=== PATIENT | female | born 1965 | race Caucasian/White ===

== ENCOUNTER 2021-02-12 05:55 | Day surgery (SDC) | payer OTHER, SELFPAY ==
--- NOTE | 2021-02-11 13:53 | P.CONAN_ITS ---
Documented by User: Cassandra Gutiérrez NP 02/11/21 13:53 HPI - Anesthesia Eval Consult details Narrative: 55yo F for Upper Endoscopy and Colonoscopy [facility] Past Medical History Medical History (Updated 02/11/21 @ 12:09 by Angie Flynn RN) Anxiety Depression GERD (gastroesophageal reflux disease) Urinary bladder incontinence Family History Family History (Updated 02/11/21 @ 12:15 by Angie Flynn RN) Father Colon cancer Brother Heart disease Diabetes Surgical History Surgical History (Updated 02/11/21 @ 12:09 by Angie Flynn RN) Hx of colonoscopy Social History Social History Patient Tobacco Use Status: Never used Tobacco Use of substances other than those prescribed or required for medical reasons: No Have you been hit, kicked, punched, or otherwise hurt by someone within the past year? If so, by whom?: No Are you DNR?: No Advance Directives: No Advance Directives Information Provided: Yes Meds Allergies Allergy/AdvReac Type Severity Reaction Status Date / Time No Known Allergies Allergy Unverified 02/10/21 20:16 Home Medications Medication Instructions Recorded Confirmed Last Taken Type bupropion HCl 200 mg tablet,12 hr 1 tab PO DAILY 02/11/21 02/11/21 Unknown History sustained-release oqjgwbtncj-ytrhhvglwttwl-syxndycm 1 tab PO TID PRN 02/11/21 02/11/21 Unknown History 50 mg-325 mg-40 mg tablet sertraline 50 mg tablet 1 tab PO DAILY 02/11/21 02/11/21 Unknown History temazepam 15 mg capsule 1 - 2 cap PO BEDTIME PRN 02/11/21 02/11/21 Unknown History Exam Exam Date and Time: February 11, 2021 1353 Assessment and Plan Assessment Anesthesia Assessment: Chart Reviewed Documented by User: Dmitry Weathers 02/12/21 07:24 [facility] Past Medical History Medical History (Updated 02/11/21 @ 12:09 by Angie Ronchi, RN) Anxiety Depression GERD (gastroesophageal reflux disease) Urinary bladder incontinence Functional capacity: independent ambulation Family History Family History (Updated 02/11/21 @ 12:15 by Angie Flynn RN) Father Colon cancer Brother Heart disease Diabetes Family history of problems with anesthesia: No Surgical History Surgical History (Updated 02/11/21 @ 12:09 by Angie Flynn RN) Hx of colonoscopy History of Problems with Anesthesia: No Social History Social History Patient Tobacco Use Status: Never used Tobacco Use of substances other than those prescribed or required for medical reasons: No Have you been hit, kicked, punched, or otherwise hurt by someone within the past year? If so, by whom?: No Are you DNR?: No Advance Directives: No Advance Directives Information Provided: Yes Meds Allergies Allergy/AdvReac Type Severity Reaction Status Date / Time No Known Allergies Allergy Unverified 02/10/21 20:16 Home Medications Medication Instructions Recorded Confirmed Last Taken Type bupropion HCl 200 mg tablet,12 hr 1 tab PO DAILY 02/11/21 02/11/21 Unknown History sustained-release afzgsnbppe-qelvcsrzfbgvu-stewvauy 1 tab PO TID PRN 02/11/21 02/11/21 Unknown History 50 mg-325 mg-40 mg tablet sertraline 50 mg tablet 1 tab PO DAILY 02/11/21 02/11/21 Unknown History temazepam 15 mg capsule 1 - 2 cap PO BEDTIME PRN 02/11/21 02/11/21 Unknown History Exam Airway Mallampati Class: I TM Dist: >3cm Neck ROM: Full Loose/Missing/Broken Teeth: Yes (Lower left chipped , crowns ) Heart: rrr Lungs: bl breath sounds Assessment and Plan Assessment Anesthesia Assessment: Anesthesia Plan Discussed Final Anesthetic Review Family History of Problems with Anesthesia: No History of Problems with Anesthesia: No NPO: Yes ASA Class: II Patient Risk: Intermediate Procedure Risk: Intermediate Anesthetic Plan Anesthetic Plan: MAC: Disposition: Standard PACU
[2021-02-12 06:38] VITALS: BMI 26.2
[2021-02-12 06:39] VITALS: BP 147/91; PULSE 66; RESP 18; TEMP -12.4; TEMP 9.6; O2SAT 95
[2021-02-12] MEDS: Lactated Ringers 1,000 ML 100 ML IVCONT (07:08)
[2021-02-12 08:39] VITALS: BP 124/87; PULSE 90; RESP 16; TEMP 36.3; O2SAT 99
--- NOTE | 2021-02-12 08:43 | P.BOP_ITS ---
Brief Operative Note Date of Service: 02/12/21 Pre-op diagnosis: GERD, Screening Post-op diagnosis: other (Hiatal hernia, Gastritis, Diverticulosis) Procedure: EGD with biopsies, Colonoscopy to the cecum and TI Surgeon: Peter De Guzman Anesthesia: MAC Was an Director Of Physical Therapy used for this Procedure?: No Estimated blood loss (mL): 2.0 Pathology: other (A. Gastric antrum B. EG Junction at 38cm) Condition: stable Disposition: PACU
[2021-02-12 08:58] VITALS: BP 144/90; PULSE 70; RESP 17; TEMP 36.3; O2SAT 98
--- NOTE | 2021-02-12 09:37 | OP_ITS ---
SURGEON: Peter De Guzman MD INDICATIONS: The patient presents for evaluation of gastroesophageal reflux, family history of colon cancer, and colorectal cancer screening. Full consent has been obtained from her for this, including risks of bleeding and perforation. PREOPERATIVE DIAGNOSIS: POSTOPERATIVE DIAGNOSIS: PROCEDURE PERFORMED: Esophagogastroduodenoscopy with biopsies and colonoscopy to cecum and terminal ileum. ESTIMATED BLOOD LOSS: COMPLICATIONS: ANESTHESIA: ASSISTANTS: SPECIMENS: PREOPERATIVE DIAGNOSES: Gastroesophageal reflux, family history of colon cancer, and colorectal cancer screening. POSTOPERATIVE DIAGNOSES: Gastroesophageal reflux, family history of colon cancer, colorectal cancer screening, small hiatal hernia, gastritis, duodenitis, diverticulosis, and internal hemorrhoids. DESCRIPTION OF PROCEDURE: The patient was placed in the left lateral decubitus position. The Olympus video gastroscope was passed in the posterior oropharynx and upper esophagus under direct vision. The scope was passed slowly into the distal esophagus. The gastroesophageal junction appeared at 38 cm. There was some slight irregularity consistent with reflux but no definitive evidence of Xiong's mucosa. There was no esophagitis. The scope entered the stomach there was a small hiatal hernia. The scope was advanced to the pylorus and the duodenum was cannulated to the descending portion. The duodenum including the bulb was carefully inspected. There was some mild duodenitis in the duodenal bulb with areas of erythema, but no erosions nor ulceration. The scope was withdrawn back in the stomach. The gastric antrum had areas of erythema and edema as well. There were no erosions nor ulceration. There was good peristalsis. The scope was retroflexed visualizing the proximal stomach carefully, which appeared normal, without any sign of mass or ulceration. Scope was straightened. Biopsies were obtained from the gastric antrum. Scope was withdrawn back to the esophagus. Biopsies were obtained from the gastroesophageal junction at 38 cm. Proximal to this, the esophageal mucosa appeared normal. The scope was withdrawn from the patient. She was turned around for colonoscopy. The digital rectal exam revealed no abnormalities. The Olympus video pediatric colonoscope was entered into the rectum and advanced easily to the cecum. Once in the cecum, I did identify normal-appearing cecal pouch with appendiceal orifice and a normal-appearing ileocecal valve. The terminal ileum was cannulated and appeared normal. The scope was withdrawn back in the colon. The entire cecum and ileocecal valve appeared normal. Scope was slowly withdrawn assessing all mucosal surfaces carefully. Preparation was excellent. I did not visualize any sign of polyps, colitis, or angiodysplasia. There was a mild amount of sigmoid diverticulosis. In the rectum, scope was retroflexed visualizing internal hemorrhoids, but no other pathology. The rectal mucosa appeared normal. Scope was straightened and withdrawn from the patient. She tolerated the procedures well and was returned to the recovery area in stable condition. IMPRESSION: 1. Small hiatal hernia, gastroesophageal reflux. 2. Mild gastritis. 3. Mild duodenitis. 4. Diverticulosis. 5. Internal hemorrhoids. PLAN: The results of the biopsies will be checked. She will continue her current regimen of Nexium 20 mg daily as that does seem to be giving her good symptomatic relief. She was advised not to use any aspirin and NSAIDs for at least 1 week. I would recommend a repeat colonoscopy in 5 years given her family history of colon cancer in her father. She will otherwise see me on a p.r.n. basis. MD MANUEL Ruiz/ELOISA / [id number] MTDD
== END 2021-02-12 09:50 | disposition home or self-care (01) ==
PROVIDERS: PCP Internal Medicine; Visit Provider Internal Medicine
PROC: (CPT 45378; principal; 2021-02-12 07:30)
DX: Z12.11 Encounter for screening for malignant neoplasm of colon (principal); Z80.0 Family history of malignant neoplasm of digestive organs; K57.30 Diverticulosis of large intestine without perforation or abscess without bleeding; K64.8 Other hemorrhoids; K21.9 Gastro-esophageal reflux disease without esophagitis; K29.50 Unspecified chronic gastritis without bleeding; K29.80 Duodenitis without bleeding; K44.9 Diaphragmatic hernia without obstruction or gangrene; F32.9 Major depressive disorder, single episode, unspecified; Z79.899 Other long term (current) drug therapy
CPT/HCPCS: 45378; 43239; 88305; 88342